=== PATIENT | male | born 1990 | race Caucasian/White ===

== ENCOUNTER 2019-07-07 02:57 | Emergency (ER) | payer SELFPAY ==
[~2019-07-07] VITALS: Ht 182.9 cm; Wt 99.8 kg
--- NOTE | 2019-07-07 04:10 | NUR ---
Dr. Thomas at bedside for MSE.
[2019-07-07] MEDS ORDERED: IV NORMAL SALINE 1000 ML BAG IV ONE (04:30)
[2019-07-07 04:34] LABS: BASOPHILS % (AUTO) 0.6 % (0.0-2.0); EOSINOPHILS # (AUTO) 0.1 K/uL (0.0-0.7); EOSINOPHILS % (AUTO) 2.4 % (0.0-7.0); LYMPHOCYTES # (AUTO) 2.3 K/uL (20.0-40.0); MEAN CORPUSCULAR HEMOGLOBIN 33.1 uug (23.8-33.4); MEAN CORPUSCULAR HGB CONC 36 g/dL (32.5-36.3); MONOCYTES # (AUTO) 0.3 K/uL (2.0-10.0); MONOCYTES % (AUTO) 7.8 % (0.0-11.0); NEUTROPHILS # (AUTO) 1.7 K/uL (1.8-8.9); NEUTROPHILS % (AUTO) 38.2 % (38.5-71.5); PLATELET COUNT (AUTO) 226 K/uL (152-348); RED BLOOD CELL COUNT(AUTO) 4.83 MIL/uL (4.06-5.63); WHITE BLOOD COUNT (AUTO) 4.4 K/uL (3.6-10.2)
[2019-07-07 04:54] LABS: BILIRUBIN,DIRECT 0.1 mg/dL (0.0-0.2); BILIRUBIN,TOTAL 0.4 mg/dL (0.2-1.0); TOTAL PROTEIN, SERUM 8.1 g/dL (6.4-8.2)
[2019-07-07] MEDS ORDERED: SWABABLE VALVE TRANSFER SET EA MC ONE (04:59)
[2019-07-07] MEDS ORDERED: IV NORMAL SALINE 250 ML IV ONE (04:59)
[2019-07-07] MEDS ORDERED: IOHEXOL 300MG/ML 100 ML INFUS..BTL ONE (04:59)
--- NOTE | 2019-07-07 05:02 | NUR ---
Pt out of ER for CT.
--- NOTE | 2019-07-07 05:20 | NUR ---
Pt back to ER from CT.
[2019-07-07 06:37] VITALS: BP 125/78
--- NOTE | 2019-07-07 06:37 | NUR ---
Patient discharged to home in stable conditon. Written and verbal after care instructions given. Patient verbalizes understanding of instructions. Pt ambulated out of ER with steady gait, no acute signs of distress, VSS, all belongings taken, IV site discontinued.
== END 2019-07-07 06:38 | disposition home or self-care (01) ==
LOC: ER 03:01
DX: R10.9 Unspecified abdominal pain (principal); Z60.2 Problems related to living alone
CPT/HCPCS: 36415; 71045; 74177; 80048; 80076; 83690; 84484; 85025; 85730; 86850; 86900; 86901; 93005; 99285; Q9967; 70030-TC; A4663; J7030; J7050